=== PATIENT | female | born 1980 | race Caucasian/White ===

== ENCOUNTER → 2021-03-30 13:02 | Outpatient (CLI) | payer OTHER, SELFPAY ==
[2021-04-03 22:06] LABS: Chlamydia By Nucleic Acid AMP Negative (Negative)
[2021-04-04 12:03] LABS: Gonococcus By Nucleic Acid AMP Negative (Negative)
[2021-04-06 00:07] LABS: HPV Genotype 16, Aptima Negative (Negative)
[2021-04-06 15:45] LABS: HPV APTIMA, High Risk Positive (Negative); HPV Genotype 18,45 Aptima Negative (Negative)
== END ==
PROVIDERS: Visit Provider Obstetrics & Gynecology
DX: Z12.4 Encounter for screening for malignant neoplasm of cervix (principal); Z11.3 Encounter for screening for infections with a predominantly sexual mode of transmission
CPT/HCPCS: 87491; 87591; 87624; 88175; G0145

== ENCOUNTER → 2021-10-18 | Outpatient (CLI) | payer OTHER, SELFPAY | END | disposition home or self-care (01) | LOC: LABSPEC 15:10 | PROVIDERS: Visit Provider Obstetrics & Gynecology | DX: Z36.85 Encounter for antenatal screening for Streptococcus B (principal) | CPT/HCPCS: 87081 ==

== ENCOUNTER 2021-11-09 05:02 | Inpatient (IN) | payer OTHER, SELFPAY ==
[2021-11-09] VITALS (19 sets, daily range): BP systolic 130–164; BP diastolic 69–93; PULSE 70–101; RESP 14–20; TEMP 36.2–36.9; O2SAT 94–98; BMI 35.3
[2021-11-09] MEDS: Lactated Ringers 1,000 ML 999 ML IV (05:30)
[2021-11-09 05:47] LABS: Absolute Lymphocyte Count 1.83 X10^3/uL (0.83-4.51); Absolute Neutrophil Count 6.2 X10^3/uL (2.0-7.7); Basophil# 0.03 X10^3/uL; Basophil% 0.3 % (0-1); Eosinophils% 1.2 % (0-5); Hematocrit 36.7 % (37-47); Lymphocyte # 1.83 X10^3/ul (0.83-4.51); Lymphocyte % 21.3 % (19-41); Mean Corp Hgb Conc 32.7 g/dL (32-36); Mean Corpuscular Hgb 30.2 pg (27.0-32.0); Mean Corpuscular Volume 92.4 fL (81-99); Mean Platelet Vol. 10.8 fl (6.2-12.0); Monocyte% 4.7 % (0-10); NRBC Flagged by Analyzer 0 % (0-5); Neutrophil # 6.18 X10^3/uL (2.7-7.7); Neutrophil % 71.8 % (47-70); Platelet Count 272 K/mm3 (150-450); RBC Distribution Width CV 14.1 % (11.6-14.6); RBC Distribution Width SD 48.2 fl (35.1-43.9); Red Blood Count 3.97 M/mm3 (4.2-5.4); White Blood Count 8.6 K/mm3 (4.4-11.0)
[2021-11-09] MEDS: Lactated Ringers 1,000 ML 150 ML IV (06:35)
--- NOTE | 2021-11-09 06:50 | PCM.HP.BLA ---
History and Physical Date of Admission: 11/09/21 ACOG ANTEPARTUM RECORD - HISTORY AND PHYSICAL (11/09/2021) Name: KAROLINA VALERIO History of this : This is a 41 year old [id number] presents at 39 wks + 1 days gestation for repeat . OB Physician: MANISHA TORO MD '[facility] ...................................................................... : 1980 Age: 41 Address: [address] [place] [address] Phone: (h) [phone] (O) [phone] Insurance Carrier: [facility] [id number] Emergency Contact: JOSÉ MIGUEL VALERIO [phone] ...................................................................... Final SHEY: 11/15/21 By Ultrasound: 9 weeks 1 day PARITY: (G-Total Pregnancies P-Fullterm,Premature,Induced AB,Spont AB, Ectopics, Multiple,Living) SHEY CONFIRMATION: By LMP: 02/08/21 Final SHEY: 11/15/21 OB PROBLEM LIST: ALLERGIES- fish oil, Lisinopril, Darvocet, aspirin, Keflex. AMA NIPT negative cHTN , on no meds. Takes garlic and magnesium for HTN. EPDS today = 2. Hx of mild untreated anxiety failed 1 hr GTT , 3hr GTT wnl Hx of C/s , scheduled for repeat c/s 11/09/21 Hypothyroid ALLERGIES: Aspirin Feeling faint Dairy Aid Intolerance-diarrhea Darvocet-N Hallucinations Fish Oil Hives and/or rash Keflex Facial swelling Lisinopril Chronic cough MEDICATIONS: garlic 200 mg tablet 1po qday magnesium 250 mg tablet 1po qday 400 mcg tablet,chewable As Directed Synthroid 50 mcg tablet 1po qday SOCIAL HISTORY: Smoking - Never Alcohol Use - None Diet - balanced Diet, low dairy, some tea and water intake 1-2 liters Lifestyle - moderate stress lifestyle Exercise - gym q Mon, Wed, Fri on treadmill 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 Illicit Drug Use - None Sexual Activity - Residence - owns a home Place of - [place], [place] Hours Worked - 20 Spouse-Sig Other Name - José Miguel Spouse-Sig Other Occupation - highway safety engineer Spouse-Sig Other Phone No - [phone] Children Name(s) - Cholo PRIOR DELIVERY HISTORY DEL DATE GEST LAB WT LB WT OZ TYPE ANES LABOR TX 11 Feb 19 39 18 7 0 C-Sec Spinal No ANTEPARTUM FLOW CHART VISIT GE RTC FU F F [place] U U DATE WK MD WKS HT PN HR M SS BP ED WT [place] GL D EF ST __ ____ ___ __ __ ___ __ __ __ ___ __ __ __ ___ __ 06 Nov JM 1 38 - + + 150/86 tr 189 ne ne October JM + + 134/80 tr 190 tr ne October JM 1 36 + + 136/84 0 188 tr - October JMW 1 36 + + 152/88 sl 188 - - cl 50 hi October JM 2 33 B + + 138/86 0 184 - - 07 Sep 30 JM 2 30 - + + 130/78 0 178 tr ne Aug 25 JM 2 - - + + 126/78 0 172 - - Jul 23 JM 4 - - on + 120/82 0 167 - - 04 Jun 18 JM 4 16 - + + 118/80 0 160 - - May 15 JM 4 - - on 130/86 157 - - Apr 11 JM 4 - - on 114/72 0 155 tr ne ANTEPARTUM NOTE(S): Nov 06 2021: Oct 31 2021: Oct 23 2021: Oct 18 2021: Repeat BP 132/76, denies headache/blurry vision Oct 02 2021: Sep 07 2021: FM well, No complaints Aug 08 2021: Jul 04 2021: doing well Jun 06 2021: doing well May 11 2021: congestion for 2 weeks Apr 13 2021: COMPREHENSIVE ANTEPARTUM NOTE(S): Nov 06 2021: Karolina is here at 38.5 weeks gest for NST and visit. NST read as reactive by Dr HERNANDEZ. Op permit read and signed. Ensure given w explanation. Pre-op scrub given with directions. Understanding voiced on all pre operative instructions. GENOVEVA. Nov 06 2021: 38 weeks, NST reactive. Previous growth ultrasound AMA breech. Scheduled for repeat section 11/09/2021 at 39 weeks. MARY Oct 31 2021: Karolina is here for NST and visit. Feeling well. Baby active. NST reactive per MARY. Looking forward to baby. Oct 25 2021: H taken to OB. tkg Oct 23 2021: Karolina is here for PNV 36w5d here good FM no edema. Doing well no concerns today. Oct 23 2021: 36 weeks, GBS negative. NST reactive. Order for NST weekly until delivery. Previous growth ultrasound AMA breech. Scheduled for repeat section 11/09/2021 at 39 weeks. MARY Oct 18 2021: Karolina presents here today for BPP and PNV at 36 weeks. Good FM. Denies headache or blurry vision first BP is 152/88. After resting on (L) side x 12 minutes, repeat BP is 132/76. LARC form signed and declined. GBS today. SUNG Oct 02 2021: Karolina is 33w5d here for PNV good FM no edema no concerns. BR Oct 02 2021: 33 weeks, with AMA growth ultrasound today AGA. Breech. For BPP next visit. Consider weekly testing such as NSTs at 36 weeks. Scheduled for repeat section 11/09/2021 at 39 weeks. JM Sep 07 2021: 30wk, 3hr GTT wnl. TSH wnl. AMA, for growth u/s next visit. Consider further testing. Repeat c/s 39wks ordered. JM Aug 08 2021: Karolina is 25w6d here for PNV good FM no edema. States she feels very fatigue lately almost no energy. BR Aug 08 2021: 25 weeks, failed 1 hour GTT. 3-hour GTT ordered along with CBC and TSH. Patient goes to [facility]. Consider growth ultrasound at 32 weeks and future testing with AMA. JM Jul 04 2021: Karolina is 20w6d here for PNV. Good FM no edema. No concerns or questions at this time. Would like to have her glucola done at [facility] in [place]. BR Jul 04 2021: 20 weeks, anatomy ultrasound today within normal limits. Desires to get 1 hour GTT at [facility], order given. JM Jun 06 2021: Karolina is 16w6d postive movment doing well no edema no questions or concerns BR Jun 06 2021: 16 weeks, NIPT negative. Anatomy ultrasound next visit. JM May 11 2021: 13wk, AMA but allergic to ASA. Desire [id number], order given to pt. cHTN on no meds, BP's stable. Baseline HELLP labs wnl. Hypothyroid, TSH wnl. MARY Apr 18 2021: TELEHEALTH NOB VISIT-- Karolina is a 40 yo G 2 P 1 with SHEY 11-15-21 planning a RCS at [facility], using [facility] for post disch ped care and is undecided about feeding method and may pump. She is to José Miguel who works as a civil service worker. 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 Currently she is giving COVID vaccines only. They have a two year old son, Cholo and are Apr 13 2021: Karolina is here for her NOB consents following US and PNV with Dr. Gale Toro. She is a 40 year old with an SHEY of 11/15/2021, current GA is 9 w 1 d. She and partner, José Miguel, have a 2 year old son at home. Her son was delivered by emergency C/S at [facility] in [place]; she states that she dilated to completed, and pushed, but that he did not descend and he was not tolerating labor well. He Apr 13 2021: 9 weeks, ultrasound today with FINAL SHEY: 11/15/2021 by LMP confirmed with 9 panel within normal limits, a positive. HELLP labs wnl. cHTN on no meds. Risk benefits alternatives of genetic screening discussed, Desires [id number] will obtain next visit. discussed allergy nasal spray. JM REVIEW OF SYSTEMS: GENERAL - Denies fever, or chills SKIN - Denies rash, new skin lesions, or change in moles EYES - Denies blurred vision, or change in visual acuity EARS - Denies ear pain, or difficulty hearing NOSE - Denies nasal congestion, discharge, or bleeding MOUTH - Denies sore throat, or difficulty swallowing NECK - Denies pain or swelling RESPIRATORY - Denies shortness of breath, cough, wheezing CARDIOVASCULAR - Denies palpitations, chest pain, orthopnea, PND, peripheral edema, syncope or claudication GASTROINTESTINAL - Denies nausea, vomiting, diarrhea, constipation, Denies abdominal pain, melena and or bright red blood GENITOURINARY - Denies dysuria, frequency of urination, urgency, or hesitancy MUSCULOSKELETAL - Denies joint or muscle pain, or back pain NEUROLOGICAL - Denies localized numbness, weakness, or tingling PSYCHIATRIC - Denies depression, anxiety, substance abuse or suicide attempts ENDOCRINE - Denies heat or cold intolerance, weight loss or gain, increasing thirst HEMATO-IMMUNOLOGIC - Denies easy bruising, bleeding, oral ulcerations or recurrent infections GENETICS SCREENING: Age 35+ years: Yes Thalassemia: No Neural Tube Defect: No Down Syndrome: No BATSHEVA-SACHS: No Sickle Cell Disease: No Hemophilia: No Musc. Dystrophy: No Cystic Fibrosis: No-declines screening Ro Chorea: No Mental Retardation: No Fragile X: No Other genetic: No Other defects: No SABs/still births: No Drugs since LMP: Yes, synthroid INFECTION HISTORY: High risk AIDS: No High risk Hepatitis: No Exposed to TB: No Exposed to Herpes: No Rash/viral illness since LMP: No History of STD: No MENSTRUAL HISTORY: PAST SUMMARY: PARITY: 1. Total Pregnancies............ 2 2. Full Term Pregnancies........ 1 3. Premature.................... 0 4. Abortions - Induced.......... 0 5. Abortions - Spontaneous...... 0 6. Ectopics..................... 0 7. Multiple Births.............. 0 8. Living Children.............. 1 PAST #1: Date of :.................. 02/11/19 Gestation Weeks:................ 39 Length of labor(hours):......... 18 Sex:............................ M Weight-lbs:............... 7 Weight-oz:................ 0 Type of Delivery:............... C-Sect Type of Anesthesia:............. Spinal Place of Delivery:.............. Mansf Treatment of Labor?:.... No Comment: AOD, FITL, MEC PHYSICAL EXAMINATION General Appearence: 41 yo female in no acute distress Vital Signs: AF, VSS Heart: RRR without rubs or gallops Lungs: CTA x 2 Breasts: deferred Abdomen: gravid Pelvis: Cervix: Presentation: cephalic Station: Fetus: Size: AGA Movement: present Heart: present LAB TEST(S) ORDERED SINCE:02/18/21 05/20/2021 [id number] PLUS CORE 04/10/2021 Other 04/06/2021 PAP IG HPV APTIMA ,45 04/04/2021 CHLAMYDIA/GC VANITA APTIMA 11/09/2021 COVID 19 AG RAPID (RN COLLECT) 11/09/2021 CBC W/DIFF, AUTOMATED 10/22/2021 RULE OUT BETA STREP (GRP. B) 08/15/2021 Other 08/03/2021 Other == ==== Order Observation Description Value Ref_Range A* Site == ==== COVID 19 AG RAP NOTE SKINNER CBC W/DIFF, AUT NOTE SKINNER CBC W/DIFF, AUT WBC 8.6 K/mm3 4.4-11.0 ML CBC W/DIFF, AUT RBC 3.97 M/mm3 4.2-5.4 L ML CBC W/DIFF, AUT HGB 12.0 g/dL 12.0-15.0 ML CBC W/DIFF, AUT HCT 36.7 37-47 L ML CBC W/DIFF, AUT MCV 92.4 fL 81-99 ML CBC W/DIFF, AUT MCH 30.2 pg 27.0-32.0 ML CBC W/DIFF, AUT MCHC 32.7 g/dL 32-36 ML CBC W/DIFF, AUT RDW CV 14.1 11.6-14.6 ML CBC W/DIFF, AUT RDW SD 48.2 fl 35.1-43.9 H ML CBC W/DIFF, AUT PLT 272 K/mm3 150-450 ML CBC W/DIFF, AUT MPV 10.8 fl 6.2-12.0 ML CBC W/DIFF, AUT NEUT% 71.8 47-70 H ML CBC W/DIFF, AUT LY% 21.3 19-41 ML CBC W/DIFF, AUT MONO% 4.7 0-10 ML CBC W/DIFF, AUT EO% 1.2 0-5 ML CBC W/DIFF, AUT BASO% 0.3 0-1 ML CBC W/DIFF, AUT IG% 0.700 0.0-0.9 ML IG% - Immature Granulocytes (promyelocytes, myelocytes and metamyelocytes) > 1% indicates that a LEFT SHIFT is Present. CBC W/DIFF, AUT ABSOLUTE NEUT 6.2 X10 3/uL 2.0-7.7 ML CBC W/DIFF, AUT ABSOLUTE LYMPH 1.83 X10 3/uL 0.83-4.51 ML CBC W/DIFF, AUT NUCLEATED RBC 0 0-5 ML RULE OUT BETA S NOTE SKINNER Other Unusual lab scanned to chart SKINNER Other Unusual lab scanned to chart SKINNER [id number] PLUS GESTATION Martinez LC_SEQCA [id number] PLUS FRACTION 9% LC_SEQCA [id number] PLUS GESTATIONAL AGE > OR = 9 Yes LC_SEQCA [id number] PLUS TEST RESULT Negative LC_SEQCA [id number] PLUS AIR SAMPLING AND MONITORING COMMENTS LC_DreamiseCA This specimen showed an expected representation of chromosome 21, 18 and 13 material. Clinical correlation is suggested. [id number] PLUS APPROVED BY SHORTY Hand MD, PhD, Director, [employer] [id number] PLUS TRISOMY 21 (DOWN SYNDROM Negative LC_SEQCA [id number] PLUS TRISOMY 18 (MAYS SYND Negative LC_SEQCA [id number] PLUS TRISOMY 13 (PATAU SYNDRO Negative LC_SEQCA [id number] PLUS SEX LC_SEQCA Consistent with Male [id number] PLUS NEGATIVE PREDICTIVE VALU Note LC_SEQCA The Negative Predictive Value (NPV) for trisomy 21, 18, and 13 is greater than 99%. The NPV for SCA and ESS cannot be calculated as SCA and ESS are only reported when an abnormality is detected. [id number] PLUS POSITIVE PREDICTIVE VALU N/A LC_SEQCA [id number] PLUS ABOUT THE TEST LC_SEQCA The MaterniT(R) 21 PLUS laboratory-developed test (LDT) analyzes circulating cell-free DNA from a maternal blood sample. The test is indicated for use in women with increased risk for chromosomal aneuploidy. Validation data on twin pregnancies is limited and the ability of this test to detect aneuploidy in a triplet has not yet been validated. [id number] PLUS TEST METHOD LC_SEQCA Circulating cell-free DNA was purified from the plasma component of maternal blood. The extracted DNA was then converted into a genomic DNA library for aneuploidy analysis of chromosomes 21, 18, and 13 via next generation sequencing.[1] Optional findings based on the test order include sex chromosome aneuploidy (SCA)[2], and enhanced sequencing series (ESS)[3], which will only be reported on as an additional finding when an abnormality is detected. SCA testing includes information on X and Y representation, while ESS testing includes deletions in selected regions (22q, 15q, 11q, 8q, 5p, 4p, 1p) and trisomy of chromosomes 16 and 22. [id number] PLUS PERFORMANCE LC_SEQCA The performance characteristics of the MaterniT(R) 21 PLUS laboratory-developed test (LDT) have been determined in a clinical validation study with women at increased risk for chromosomal aneuploidy.[1],[2],[3],[4] [id number] PLUS PERFORMANCE CHARACTERIST Note LC_SEQCA ! Y-Chromosome ( Sex) ! Accuracy: 99.4% ! ! ! ! Region (associated syndrome) ! Est. Sens# ! Est. Spec ! ! ! ! Trisomy 21 (Down Syndrome) ! 99.1% ! 99.9% ! ! ! ! Trisomy 18 (Mays Syndrome) ! >99.9% ! 99.6% ! ! ! ! Trisomy 13 (Patau Syndrome) ! 91.7% ! 99.7% ! ! ! ! Sex Chromosome Aneuploidies## ! 96.2% ! 99.7% ! ! ! * As reported in [facility] database [id number] [[email or web address].clinicalJoMaJaome.org/search/ ] # Estimated Sensitivity. Sensitivity estimated across the observed size distribution of each syndrome [per [facility] database nstd37] and across the range of fractions observed in routine clinical NIPT. Actual sensitivity can also be influenced by other factors such as the size of the event, total sequence counts, amplification bias, or sequence bias. ## Martinez gestation only. [id number] PLUS LIMITATIONS OF THE TEST LC_SEQCA While the results of these tests are highly accurate, discordant results, including inaccurate sex prediction, may occur due to placental, maternal, or mosaicism or neoplasm; vanishing twin; prior maternal organ transplant; or other causes. Sex chromosomal aneuploidies are not reportable for known multiple gestations. These tests are screening tests and not diagnostic; they do not replace the accuracy and precision of diagnosis with CVS or amniocentesis. A patient with a positive test result should be referred for genetic counseling and offered invasive diagnosis for confirmation of test results.[5] A negative result does not ensure an unaffected nor does it exclude the possibility of other chromosomal abnormalities or defects which are not a part of these tests. An uninformative result may be reported, the causes of which may include, but are not limited to, insufficient sequencing coverage, noise or artifacts in the region, amplification or sequencing bias, or insufficient fraction. These tests are not intended to identify pregnancies at risk for neural tube defects or ventral wall defects. Testing for whole chromosome abnormalities (including sex chromosomes) and for subchromosomal abnormalities could lead to the potential discovery of both and maternal genomic abnormalities that could have major, minor, or no, clinical significance. Evaluating the significance of a positive or a non-reportable result may involve both invasive testing and additional studies on the mother. Such investigations may lead to a diagnosis of maternal chromosomal or subchromosomal abnormalities, which on occasion may be associated with benign or malignant maternal neoplasms. These tests may not accurately identify triploidy, balanced rearrangements, or the precise location of subchromosomal duplications or deletions; these may be detected by diagnosis with CVS or amniocentesis. The ability to report results may be impacted by maternal BMI, maternal weight, maternal systemic lupus erythematosus (SLE) and/or by certain pharmaceutical agents such as low molecular weight heparin (for example: Lovenox(R), Xaparin(R), Clexane(R) and Fragmin(R)). The results of this testing, including the benefits and limitations, should be discussed with a qualified healthcare provider. management decisions, including termination of the , should not be based on the results of these tests alone. The healthcare provider is responsible for the use of this information in the management of their patient. [id number] PLUS NOTE LC_SEQCA This test was developed and its performance characteristics determined by [facility]. It has not been cleared or approved by the Food and Drug Administration. This laboratory is certified under the Clinical Laboratory Improvement Amendments (CLIA) as qualified to perform high complexity clinical laboratory testing and accredited by the [employer] [place] (CAP). If there is future clinical need for adding MaterniT GENOME testing, this specimen will be available until term. [facility] samples will not be retained beyond 60 days. [facility] patients will have to send a new sample for re-sequencing ([facility] Test Code: [id number]). [id number] PLUS REFERENCES LC_SEQCA 1. Osvaldo PARIS, et al. Sania Med. 2012;14(3):296-305. 2. Dulce Maria CROSS et al. Prenat Diag. 2013;33(6):591-597. 3. Juan Ramon C, et al. Clin Chem. 2015 Apr;61(4):608-616. 4. Osvaldo PARIS, et al. Sania Med. 2011;13(11):913-920. 5. ACOG/SMFM Joint Committee Opinion No. 545, May 2012. [id number] PLUS PDF . LC_SEQCA Other Unusual lab various labs scanned SKINNER PAP IG HPV APTI NOTE SKINNER PAP IG HPV APTI DIAG Comment . LCI NEGATIVE FOR INTRAEPITHELIAL LESION OR MALIGNANCY. CELLULAR CHANGES ASSOCIATED WITH INFLAMMATION ARE PRESENT. PAP IG HPV APTI ADEQ Comment . LCI Satisfactory for evaluation. Endocervical and/or squamous metaplastic cells (endocervical component) are present. PAP IG HPV APTI PERFORM Comment . LCI Hollie Landrum, Wire Preparation Worker (ASCP) This liquid based ThinPrep(R) pap test was screened with the use of an image guided system. PAP IG HPV APTI COMM . . LCI PAP IG HPV APTI PAPSMR Comment . LCI The Pap smear is a screening test designed to aid in the detection of premalignant and malignant conditions of the uterine cervix. It is not a diagnostic procedure and should not be used as the sole means of detecting cervical cancer. Both false-positive and false-negative reports do occur. PAP IG HPV APTI HPV APTIMA, HR Positive Negative A LCI This nucleic acid amplification test detects fourteen high- risk HPV types (16,18,31,33,35,39,45,51,52,56,58,59,66,68) without differentiation. PAP IG HPV APTI HPV GENOTYPE 16 Negative Negative LCI PAP IG HPV APTI HPV UCHE 18,45 Negative Negative LCI Performed at: [address] [id number] Legal Contracts Specialist: Juliann Smith MD, Phone: [phone] Performed at: =[address] [id number] Legal Contracts Specialist: Juliann Smith MD, Phone: [phone] CHLAMYDIA/GC NA NOTE SKINNER CHLAMYDIA/GC NA CHLAMY,NUC ACID Negative Negative LCI CHLAMYDIA/GC NA GC BY NUC ACID Negative Negative LCI Performed at: =[address] [id number] Legal Contracts Specialist: Juliann Smith MD, Phone: [phone] *Negative results from patients with symptom onset beyond five days should be treated as presumptive and confirmed by a molecular assay if clinically necessary. Negative results should not be used as the sole basis for treatment or for patient management. SARS-CoV-2 Ag Resp Ql IA.rapid *Positive results do not differentiate between SARS-CoV and SARS-CoV-2. If differentiation of the specific SARS virus is desired an additional sample and an additional order is required. SARS-CoV-2 Ag Resp Ql IA.rapid * This test has not been FDA cleared or approved; the test has been authorized by FDA under an Emergency Use Authorization (EAU) for use by laboratories certified under CLIA that meet the requirements to perform moderate, high, or waived complexity tests. SARS-CoV-2 Ag Resp Ql IA.rapid Normal Reference Range: Negative SARS-CoV-2 (COVID 19) Negative RAPID METHOD [employer] B Beta Streptococcus is not isolated. == ==== Impression /Plan: 39 wks + 1 days intrauterine for repeat . Preparations in progress for delivery.
[2021-11-09 07:24] LABS: Amphetamine Urine VISTA NEGATIVE (<1000 ng/mL); Barbiturate Urine VISTA NEGATIVE (< 200 ng/mL); Benzodiazepine Urine VISTA NEGATIVE (< 200 ng/mL); Cocaine Urine VISTA NEGATIVE (< 300 ng/mL); Ecstacy Urine VISTA NEGATIVE (< 500 ng/mL); Methadone Urine VISTA NEGATIVE (< 300 ng/mL); PCP Urine VISTA NEGATIVE (< 25 ng/mL); THC Urine VISTA NEGATIVE (< 50 ng/mL); Vista UDS pH Range 6
[2021-11-09] MEDS: Acetaminophen 500 MG Tablet 1000 MG PO ×4 (07:32→23:55)
--- NOTE | 2021-11-09 08:20 | NURSING ---
Pt c/o feeling sweaty. Pt requests that her BGT be checked. BGT was [address] James was notified. Order received.
[2021-11-09 08:26] LABS: Bedside Glucose 64 mg/dL (74-106)
[2021-11-09] MEDS: Dextrose 50%-Water 25 GM/50 ML DISP.SYRIN IV (08:30)
[2021-11-09] MEDS: Sodium Citrate/Citric Acid 30 ML UDC PO (08:33)
[2021-11-09] MEDS: Cefazolin 2 GM in 0.9% Normal Saline 100 ML IV (08:33)
--- NOTE | 2021-11-09 09:45 | OP.PCM_ITS ---
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 Normal uterus, tubes, and ovaries. Consent: Patient with history of section desires repeat section Via Pfannenstiel incision. Patient understands the risks of the procedure include but are not limited to visceral or vascular injury, prolonged hospitalization, blood loss and need for transfusion, reoperation. Patient stated understanding and wished to proceed. All questions were answered and consent was signed. Procedure: Patient was brought back to the OR where spinal anesthesia was found to be adequate. 2 g of Ancef were given for infection prophylaxis. Patient was prepared and draped in a supine position with leftward tilt. A Pfannenstiel incision was made at the skin with a scalpel. The incision was carried down to the fascia with a scalpel. The fascia was excised and extended laterally. Inferior aspect of the fascia was grasped with a clamp and the underlying rectus and pyramidalis muscle were dissected off sharply with Cantu scissors. In a similar fashion the superior aspect of the fascia was grasped with a clamp and the underlying rectus muscle was dissected off sharply. Rectus muscle was dissected at the midline down to the level of pubic symphysis. Preperitoneal fatty tissue was noted and peritoneum was entered bluntly. Peritoneum was extended superiorly and inferiorly with good visualization of the bladder. Bladder blade was inserted and vesicouterine peritoneum was identified. Low transverse hysterotomy was made. Hand was placed into the incision and gentle fundal pressure was applied once the head was brought into the incision and the bladder blade was removed. Head was delivered with the help of a Kiwi vacuum single pull. Shoulders delivered with ease. Cord cut and clamped. Baby handed off to nursing. Placenta delivered via cord traction and fundal massage. IV oxytocin was initiated in order to facilitate uterine contractions. Uterus was exteriorized and wiped out with dry laparotomy sponge. Uterus was closed in a continuous running fashion. [id number] used. Joselito was placed over the incision and good hemostasis was noted. Uterus was placed back in the abdominal cavity and reinspected good hemostasis was noted. Fascia was closed in continuous running fashion with PDS. Subcutaneous irrigation performed, good hemostasis was noted. Skin was closed in a subcuticular fashion. All counts were correct x2. Patient tolerated procedure well and was brought to recovery in stable condition.
[2021-11-09] MEDS: Oxytocin 30 units/NS 500 ml 30 UNITS/500 ML IV.SOLN 167 UNITS IV (10:15)
[2021-11-09] MEDS: Senna/Docusate Sodium 1 Tablet PO (11:01)
[2021-11-09] MEDS: Ketorolac 30 MG/ML Syringe IV ×3 (11:02→21:42)
[2021-11-09 11:10] LABS: Bedside Glucose 102 mg/dL (74-106)
[2021-11-09] MEDS: Lactated Ringers 1,000 ML 100 ML IV ×2 (13:21→21:42)
--- NOTE | 2021-11-09 15:12 | NURSING ---
Callvnace Machado SENIOR DRAFTER office and talked to the nurse about patient's BP trending upwards. Gave her the last 3 BP's that were taken on patient and that patient is CHTN but currently untreated. Also informed nurse that patient took labatolol with her last . Nurse states that she will pass information along to Dr. Gale James
--- NOTE | 2021-11-09 15:15 | NURSING ---
Dr. Ricardo James calls this nurse at this time. Orders 100mg Labatelol PO BID.
[2021-11-09] MEDS: Labetalol 100 MG Tablet PO (15:28)
[2021-11-09] MEDS: Lactated Ringers 500 ML IV.SOLN. IV (18:55)
[2021-11-09] MEDS: Enoxaparin 40 MG/0.4 ML Syringe SC (21:42)
[2021-11-09] MEDS: 0.9% Saline Lock 10 ML Syringe IV (21:42)
--- NOTE | 2021-11-10 00:23 | NURSING ---
this RN provided education on importance of removing gonsalez cath now that urine is clear and pt appears to be diuresing. pt states she does not want gonsalez removed and this RN can take it out upon next assessment. this RN will continue to monitor urine output and provide education as needed.
[2021-11-10 04:46] VITALS: BP 120/65; PULSE 72; RESP 16; TEMP 36.4; O2SAT 96
[2021-11-10] MEDS: Ketorolac 30 MG/ML Syringe IV (04:50)
[2021-11-10] MEDS: Labetalol 100 MG Tablet PO ×2 (04:50→15:56)
[2021-11-10] MEDS: 0.9% Saline Lock 10 ML Syringe IV (04:51)
[2021-11-10] MEDS: Levothyroxine 50 MCG Tablet PO (05:14)
[2021-11-10 05:17] LABS: Hematocrit 29.8 % (37-47); Hemoglobin 9.7 g/dL (12.0-15.0); Mean Corp Hgb Conc 32.6 g/dL (32-36); Mean Corpuscular Hgb 30.4 pg (27.0-32.0); Mean Corpuscular Volume 93.4 fL (81-99); Mean Platelet Vol. 10.6 fl (6.2-12.0); Platelet Count 203 K/mm3 (150-450); RBC Distribution Width CV 14.2 % (11.6-14.6); RBC Distribution Width SD 48.3 fl (35.1-43.9); Red Blood Count 3.19 M/mm3 (4.2-5.4); White Blood Count 10.9 K/mm3 (4.4-11.0)
[2021-11-10] MEDS: Acetaminophen 500 MG Tablet 1000 MG PO ×3 (06:46→18:35)
[2021-11-10 08:45] VITALS: BP 143/86; PULSE 78; RESP 16; TEMP 36.8; O2SAT 98
--- NOTE | 2021-11-10 08:46 | PCM.PN.OB ---
Subjective Subjective Denies headache, vision changes, shortness of breath or chest pain. Incisional pain well controlled. No flatus or bowel movement yet. Tolerates PO. Voiding and ambulating without difficulty. She is bottlefeeding. Objective Data Objective Data Vital Signs: Vital Signs Temp Pulse Resp BP Pulse Ox 97.5 F L 72 16 120/65 96 11/10/21 04:46 11/10/21 04:46 11/10/21 04:46 11/10/21 04:46 11/10/21 04:46 Oxygen Delivery Method Room Air Weight: 87.543 kg Body Mass Index (BMI) 35.3 Intake & Output: Intake and Output for Last 24 Hours 11/08/21 11/09/21 11/10/21 23:59 23:59 23:59 Intake Total 4869.16 / 4869.16 913.33 / 913.33 Output Total 350 / 350 1600 / 1600 Balance 4519.16 / 4519.16 -686.67 / -686.67 Lab / Micro Data Result Diagrams: 11/10/21 05:10 Labs: Laboratory Results - last 24 hr 11/09/21 08:57: POC Glucose 102 11/10/21 05:10: WBC 10.9, RBC 3.19 L, Hgb 9.7 L, Hct 29.8 L, MCV 93.4, MCH 30.4, MCHC 32.6, RDW Std Deviation 48.3 H, RDW Coeff of Dion 14.2, Plt Count 203, MPV 10.6 Micro: Microbiology 11/09/21 05:35 Nasal Secretion SARS-CoV-2 Antigen (Rapid) - Final Physical Exam Const alert, oriented x3 and no apparent distress Resp normal respiratory effort, normal air movement and clear to auscultation bilaterally Cardio regular rate, regular rhythm, S1 normal heart sound and S2 normal heart sound GI normal to inspection, nondistended, normoactive bowel sounds, soft to palpation, non-tender and non-distended GI Narrative: incisional dressing c/d/i Manual OB Exam: other lochia scant Uterus Palpation: uterus fundus firm Extremity no calf tenderness Assessment & Plan (1) delivery delivered: PLAN: A positive Bottlefeeding Routine postop care RPR nr, Rubella immune, HBsAg neg, HIV neg, HCV Ab neg
[2021-11-10] MEDS: Senna/Docusate Sodium 1 Tablet PO (10:25)
[2021-11-10] MEDS: Enoxaparin 40 MG/0.4 ML Syringe SC (10:26)
[2021-11-10 12:00] VITALS: BP 147/87; PULSE 96; RESP 16; TEMP 36.6; O2SAT 98
[2021-11-10 15:55] VITALS: BP 138/85; PULSE 86; RESP 16; TEMP 36.7; O2SAT 97
[2021-11-10] MEDS: oxyCODONE 5 MG Tablet PO (15:56)
[2021-11-10 19:52] VITALS: BP 148/84; PULSE 88; RESP 15; TEMP 36.9; O2SAT 97
[2021-11-10] MEDS: Ibuprofen 600 MG Tablet PO (22:14)
[2021-11-11] MEDS: Acetaminophen 500 MG Tablet 1000 MG PO ×3 (00:28→12:51)
[2021-11-11] MEDS: oxyCODONE 5 MG Tablet PO (02:22)
[2021-11-11 02:26] VITALS: BP 144/76; PULSE 82; RESP 16; TEMP 36.4; O2SAT 99
[2021-11-11] MEDS: Labetalol 100 MG Tablet PO ×2 (04:03→07:10)
[2021-11-11] MEDS: Levothyroxine 50 MCG Tablet PO (06:06)
--- NOTE | 2021-11-11 07:00 | PCM.PN.OB ---
Subjective Subjective Reports intense pain at the incision. She was able to sleep with Oxycodone. Did not feel that Ibuprofen helped and reports it caused GI upset. She has been out of bed, passing flatus and had two bowel movements yesterday. She would like to go home later today. Objective Data Objective Data Vital Signs: Vital Signs Temp Pulse Resp BP Pulse Ox 97.5 F L 82 16 144/76 H 99 11/11/21 02:26 11/11/21 02:26 11/11/21 02:26 11/11/21 02:26 11/11/21 02:26 Oxygen Delivery Method Room Air Weight: 87.543 kg Body Mass Index (BMI) 35.3 Intake & Output: Intake and Output for Last 24 Hours 11/09/21 11/10/21 11/11/21 23:59 23:59 23:59 Intake Total 4869.16 / 4869.16 913.33 / 913.33 Output Total 350 / 350 2500 / 2500 Balance 4519.16 / 4519.16 -1586.67 / -1586.67 Lab / Micro Data Result Diagrams: 11/10/21 05:10 Micro: Microbiology 11/09/21 05:35 Nasal Secretion SARS-CoV-2 Antigen (Rapid) - Final Physical Exam Const alert, oriented x3 and no apparent distress Resp normal respiratory effort, normal air movement and clear to auscultation bilaterally Cardio regular rate, regular rhythm, S1 normal heart sound and S2 normal heart sound GI normal to inspection, nondistended, normoactive bowel sounds, soft to palpation, non-tender and non-distended GI Narrative: incisional dressing c/d/i Manual OB Exam: other lochia scant Uterus Palpation: uterus fundus firm Extremity no calf tenderness Assessment & Plan (1) delivery delivered: PLAN: Routine postop care Add gabapentin, limit NSAIDs A positive Bottlefeeding RPR nr, Rubella immune, HBsAg neg, HIV neg, HCV Ab neg Plan d/c home later today if appropriately pain controlled (2) Chronic hypertension: PLAN: Will increase Labetalol to 200mg bid
--- NOTE | 2021-11-11 07:09 | PCM.DC.SUM ---
Providers Date of Admission: 11/09/21 Primary Care Physician: Ree Primary Care Phys Reason For Visit: REPEAT Diagnosis Discharge Diagnosis (1) delivery delivered: Status: Acute Code(s): O82 - Encounter for delivery without indication (2) Chronic hypertension: Status: Chronic Code(s): I10 - Essential (primary) hypertension Medications at Discharge Home Medications garlic 1 mg PO DAILY 11/09/21 iron 1 mg PO DAILY 11/09/21 levothyroxine [Synthroid] 50 mcg PO DAILY 11/09/21 magnesium 1 mg PO DAILY 11/09/21 [id number] 1 tab PO DAILY 11/09/21 gabapentin 100 mg PO TIDCM #9 cap 11/11/21 labetalol 200 mg PO Q12H #60 tab 11/11/21 oxycodone 5 mg PO Q4H PRN PRN 5 Days #5 tab 11/11/21 Hospital Course Operations section Summary of Care Provided Hospital Course: 41yo admitted at 39 1/7 weeks gestation for scheduled repeat section. She had a history of chronic hypertension not requiring medications and hypothyroidism on Synthroid. Her procedure was uncomplicated. Her BPs were elevated and she was started on Labetalol. She was discharged to home on postop day #2. Weight / BMI Weight Weight: 87.543 kg Body Mass Index (BMI) 35.3 ABG / Lab / Microbiology Data Result Diagrams: 11/10/21 05:10 11/11/21 07:04 Microbiology: Microbiology 11/09/21 05:35 Nasal Secretion SARS-CoV-2 Antigen (Rapid) - Final Meaningful Use Info Meaningful Use Diagnoses (Choose all that apply): None applicable Discharge Plan Admission Admit Date/Time: 11/09/21 05:02 Primary Reason for Your Visit: delivery, High blood pressure Attending Provider: Imer James Primary Care Provider: Care Physician,Ree Primary Discharge Orders/Prescriptions Prescriptions: New gabapentin 100 mg Capsule 100 mg PO TIDCM Qty: 9 RF: 0 oxycodone 5 mg Tablet 5 mg PO Q4H PRN PRN (Reason: Pain Score 4-10) 5 Days Qty: 5 RF: 0 labetalol 200 mg Tablet 200 mg PO Q12H Qty: 60 RF: 0 Continued garlic 1,000 mg Capsule 1 mg PO DAILY RF: 0 levothyroxine [Synthroid] 50 mcg Tablet 50 mcg PO DAILY RF: 0 [id number] 1 mg Tablet 1 tab PO DAILY RF: 0 magnesium 250 mg Tablet 1 mg PO DAILY RF: 0 iron 40 mg Capsule 1 mg PO DAILY RF: 0 Referrals / Follow Up: Care Physician,No Primary [Primary Care Provider] - Disposition Disposition (needs filled in before D/C Order can be placed): Home, Self Care
[2021-11-11 07:35] LABS: ALB/GLOB Ratio 0.6 RATIO (0.9-2.4); AST(SGOT) 29 U/L (15-37); Alanine Aminotransfer ALT/SGPT 19 U/L (13-56); Albumin, Serum 1.9 g/dL (3.2-5.0); Alkaline Phosphatase 177 U/L (45-117); Anion Gap 6 (5-15); BUN 14 mg/dL (7-18); BUN/Creat Ratio 20.2 RATIO (10-20); Calcium,Total 8.3 mg/dL (8.5-10.1); Chloride 112 mmol/L (98-107); Creatinine, Serum 0.69 mg/dL (0.55-1.02); EST Glomerular Filtration Rate 99 mL/min (>60); Est Glom Filt Rate - Afr Amer 119 mL/min (>60); Globulin 3.4 g/dL (2.2-4.2); Glucose 71 mg/dL (74-106); Potassium 4.2 mmol/L (3.5-5.1); Protein, Total 5.3 g/dL (6.4-8.2); Sodium Level 140 mmol/L (136-145)
[2021-11-11 08:05] VITALS: BP 151/91; PULSE 81; RESP 16; TEMP 35.8; O2SAT 98
[2021-11-11 09:00] VITALS: BP 133/80; PULSE 94
[2021-11-11] MEDS: Gabapentin 100 MG Capsule PO ×2 (09:00→12:52)
[2021-11-11] MEDS: Senna/Docusate Sodium 1 Tablet PO (09:07)
[2021-11-11] MEDS: Enoxaparin 40 MG/0.4 ML Syringe SC (09:07)
[2021-11-11 12:45] VITALS: BP 145/81; PULSE 84; RESP 16; TEMP 36
--- NOTE | 2021-11-11 13:06 | PCM.DC ---
Discharge Instructions Diet Discharge Diet: No restrictions Activity Discharge Activity: May Shower May resume sexual activity in: 4-6 weeks Dressing / Incision Call your doctor if your incision/area has: Increased Pain/ Swelling, Increased Redness, Foul Smelling Discharge and Swelling at the incision site Call your doctor if you observe: Fever of 101 or Higher, Inability to urinate, Inability to have a bowel movement, Using more than 1 pad per hour, Shortness of breath, Chest pain, Calf discomfort, Uncontrolled pain and - (Persistent or severe headache) Suture Line Care: Avoid Pulling/Pushing Remove Dressing in: 4 days Cleanse incision/area with: Soap & Water Follow Up Care Please Follow Up With: Annette Bourne MD When: 7-10 days for blood pressure check 6 weeks for visit Test Results: Test results from this visit will be discussed in further detail at your follow-up appointment, if applicable. Discharge Plan Admission Admit Date/Time: 11/09/21 05:02 Primary Reason for Your Visit: delivery, High blood pressure Attending Provider: Imer James Primary Care Provider: Care Physician,Ree Primary Discharge Orders/Prescriptions Prescriptions: New gabapentin 100 mg Capsule 100 mg PO TIDCM Qty: 9 RF: 0 oxycodone 5 mg Tablet 5 mg PO Q4H PRN PRN (Reason: Pain Score 4-10) 5 Days Qty: 5 RF: 0 labetalol 200 mg Tablet 200 mg PO Q12H Qty: 60 RF: 0 Continued garlic 1,000 mg Capsule 1 mg PO DAILY RF: 0 levothyroxine [Synthroid] 50 mcg Tablet 50 mcg PO DAILY RF: 0 [id number] 1 mg Tablet 1 tab PO DAILY RF: 0 magnesium 250 mg Tablet 1 mg PO DAILY RF: 0 iron 40 mg Capsule 1 mg PO DAILY RF: 0 Referrals / Follow Up: Care Physician,No Primary [Primary Care Provider] - Disposition Disposition (needs filled in before D/C Order can be placed): Home, Self Care
== END 2021-11-11 14:00 | disposition home or self-care (01) | DRG 787 ==
PROVIDERS: Obstetrics & Gynecology; Admitting Provider Obstetrics & Gynecology; Visit Provider Obstetrics & Gynecology
PROC: 10D00Z1 Extraction of Products of Conception, Low, Open Approach (ICD-10-PCS; CPT 59514; principal; 2021-11-09 07:15)
DX: O34.211 Maternal care for low transverse scar from previous cesarean delivery (principal); O10.02 Pre-existing essential hypertension complicating childbirth; E03.9 Hypothyroidism, unspecified; Z37.0 Single live birth; Z3A.39 39 weeks gestation of pregnancy; O99.284 Endocrine, nutritional and metabolic diseases complicating childbirth
CPT/HCPCS: 59025; 59050; 80053; 80307; 82962; 85025; 85027; 86850; 86900; 86901; 87426; 99218; J7120; A4216; G0378; J2405

== ENCOUNTER → 2022-05-16 | Outpatient (CLI) | payer OTHER, SELFPAY ==
[2022-05-30 14:56] LABS: HPV APTIMA, High Risk Negative (Negative)
== END | disposition home or self-care (01) ==
LOC: LABSPEC 16:43
PROVIDERS: Visit Provider Obstetrics & Gynecology
DX: Z12.4 Encounter for screening for malignant neoplasm of cervix (principal)
CPT/HCPCS: 87624; 88175; G0145

== ENCOUNTER → 2022-08-22 | Outpatient (CLI) | payer OTHER, SELFPAY ==
[2022-09-01 11:22] LABS: HPV APTIMA, High Risk Negative (Negative)
== END | disposition home or self-care (01) ==
LOC: LABSPEC 14:39
PROVIDERS: Visit Provider Obstetrics & Gynecology
DX: Z12.4 Encounter for screening for malignant neoplasm of cervix (principal); R87.615 Unsatisfactory cytologic smear of cervix
CPT/HCPCS: 87624; 88175; G0145